=== PATIENT | female | born 1960 | race Two or more races ===

== ENCOUNTER 2016-10-11 19:55 | Emergency (ER) | payer OTHER ==
[~2016-10-11] VITALS: Ht 167.6 cm; Wt 56.7 kg
[2016-10-11 20:06] VITALS: BP 117/67
[2016-10-11] MEDS ORDERED: IBUPROFEN 600 MG TABLET PO ONE ×2 (21:00→21:24)
--- NOTE | 2016-10-11 21:29 | NUR ---
lead technician at bedside.
== END 2016-10-11 22:05 | disposition home or self-care (01) ==
LOC: ER 19:57
DX: M79.605 Pain in left leg (principal); R23.8 Other skin changes; E03.9 Hypothyroidism, unspecified; Z85.3 Personal history of malignant neoplasm of breast
CPT/HCPCS: 93971-TC; A4606; Z7610